=== PATIENT | female | born 1980 | race Caucasian/White ===

== ENCOUNTER 2017-02-18 14:11 | Emergency (ER) | payer OTHER ==
[2017-02-18 14:29] VITALS: BP 144/94
--- NOTE | 2017-02-18 15:23 | UC ---
FLU HPI - HPI Summary HPI Summary: SINCE YESTERDAY, HAS HAD SORE THROAT, BODY ACHES, AND CONGESTION. NO FEVER. NO RASHES. NO NAUSEA, VOMITING, OR DIARRHEA. - History of Current Complaint Chief Complaint: UCRespiratory Stated Complaint: SORE THROAT BODYACHES RUNNY NOSE Time Seen by Provider: 02/18/17 14:27 Hx Obtained From: Patient, Family/Strategic Partner Development Manager Onset/Duration: Gradual Onset, Lasting Days Severity Currently: Mild Severity Initially: Mild Pain Intensity: 0 Pain Scale Used: 0-10 Numeric Associated Signs & Symptoms: Positive: Nasal Congestion - Risk Factors Influenza Risk Factors: Negative - Allergy/Home Medications Allergies/Adverse Reactions: Allergies Allergy/AdvReac Type Severity Reaction Status Date / Time Azithromycin Allergy See Comment Verified 02/18/17 14:20 Latex Allergy Hives Verified 02/18/17 14:20 Naproxen Allergy See Comment Verified 02/18/17 14:20 Home Medications: Home Medications Cetirizine* [ZyrTEC 10 MG TAB*] 1 tab QPM 02/18/17 [History Confirmed 02/18/17] Nabumetone TAB* [Relafen TAB*] 500 mg BID 02/18/17 [History Confirmed 02/18/17] Oxybutynin Chloride [Oxybutynin Chloride ER] 10 mg QAM 02/18/17 [History Confirmed 02/18/17] metFORMIN* [Glucophage 500 MG TAB *] 1,000 mg QPM 02/18/17 [History Confirmed ] PMH/Surg Hx/FS Hx/Imm Hx Previously Healthy: Yes - Surgical History Surgical History: None - Family History Known Family History: Negative: Respiratory Disease - Social History Occupation: Employed Full-time Lives: With Family Alcohol Use: None Substance Use Type: None Smoking Status (MU): Light Every Day Tobacco Smoker Type: Cigarettes Amount Used/How Often: 5 cig/day - Immunization History Most Recent Influenza Vaccination: not yet 2017 Review of Systems Constitutional: Negative Skin: Negative Eyes: Negative ENT: Sore Throat, Sinus Congestion Respiratory: Negative Cardiovascular: Negative Gastrointestinal: Negative Genitourinary: Negative Motor: Negative Neurovascular: Negative Musculoskeletal: Myalgia Neurological: Negative Psychological: Negative Is Patient Immunocompromised?: No All Other Systems Reviewed And Are Negative: Yes Physical Exam Triage Information Reviewed: Yes Appearance: No Pain Distress, Well-Nourished, Ill-Appearing - MILDLY Vital Signs: Initial Vital Signs Temp 97.8 F 02/18/17 14:23 Pulse 91 02/18/17 14:23 Resp 16 02/18/17 14:23 BP 144/94 02/18/17 14:23 Pulse Ox 97 02/18/17 14:23 Vital Signs Reviewed: Yes Eye Exam: Normal ENT: Positive: Normal ENT inspection, Hearing grossly normal, Pharynx normal, TMs normal Dental Exam: Normal Neck exam: Normal Neck: Positive: Supple, Nontender, No Lymphadenopathy Respiratory Exam: Normal Respiratory: Positive: Chest non-tender, Lungs clear, Normal breath sounds, No respiratory distress, No accessory muscle use Cardiovascular Exam: Normal Cardiovascular: Positive: RRR, No Murmur, Pulses Normal, Brisk Capillary Refill Abdominal Exam: Normal Abdomen Description: Positive: Nontender Musculoskeletal Exam: Normal Neurological Exam: Normal Psychological Exam: Normal Skin Exam: Normal Flu Course/Dx - Differential Dx/Diagnosis Differential Diagnosis/HQI/PQRI: Influenza, Other - STREP Provider Diagnoses: PHARYNGITIS; UPPER RESPIRATORY INFECTION Discharge - Discharge Plan Condition: Stable Disposition: HOME Patient Education Materials: Pharyngitis (ED), Upper Respiratory Infection (ED) Referrals: Abdulaziz Moreno PA [Primary Care Provider] -
== END 2017-02-18 15:08 | disposition home or self-care (01) ==
LOC: UCCORT 14:11
DX: J02.9 Acute pharyngitis, unspecified (principal); J06.9 Acute upper respiratory infection, unspecified; Z88.6 Allergy status to analgesic agent; Z88.1 Allergy status to other antibiotic agents; Z91.040 Latex allergy status; F17.210 Nicotine dependence, cigarettes, uncomplicated
CPT/HCPCS: 87502; 87651; 99211; G0463

== ENCOUNTER 2018-10-01 17:07 | Emergency (ER) | payer OTHER ==
[2018-10-01 18:06] VITALS: BP 128/87
--- NOTE | 2018-10-01 18:19 | UC ---
Eye Complaint HPI - HPI Summary HPI Summary: 38-year-old female who had something fly into her eye few days ago today she noted that she had a stye starting on her right lower eyelid. - History of Current Complaint Chief Complaint: UCEye Stated Complaint: RIGHT EYE CONCERN Time Seen by Provider: 10/01/18 17:59 Hx Obtained From: Patient Hx Last Menstrual Period: 10/01/18 ?: No Onset/Duration: Gradual Onset Timing: Constant Severity Initially: Mild Severity Currently: Mild Pain Intensity: 5 Location of Injury: Conjunctiva Aggravating Factor(s): Nothing Alleviating Factor(s): Nothing Associated Signs And Symptoms: Positive: Negative - Allergies/Home Medications Allergies/Adverse Reactions: Allergies Allergy/AdvReac Type Severity Reaction Status Date / Time MS Azithromycin Allergy See Comment Verified 02/18/17 14:20 [Azithromycin] MS Latex [Latex] Allergy Hives Verified 02/18/17 14:20 MS Naproxen [Naproxen] Allergy See Comment Verified 02/18/17 14:20 Home Medications: Home Medications Imipramine (NF) 25 mg PO DAILY 10/01/18 [History Confirmed 10/01/18] PMH/Surg Hx/FS Hx/Imm Hx Previously Healthy: Yes Endocrine History: Diabetes Cardiovascular History: Hypertension Respiratory History: Asthma - Surgical History Surgical History: None - Family History Known Family History: Negative: Respiratory Disease - Social History Alcohol Use: Rare Substance Use Type: None Smoking Status (MU): Light Every Day Tobacco Smoker Type: Cigarettes Amount Used/How Often: 5 cig/day - Immunization History Most Recent Influenza Vaccination: not yet 2017 Review of Systems All Other Systems Reviewed And Are Negative: Yes Eyes: Positive: Other - Patient noted that she had a small possible stye on her right lower eyelid. She does not feel like she has a foreign body in her eye. Is Patient Immunocompromised?: No Physical Exam Triage Information Reviewed: Yes Appearance: Well-Appearing, No Pain Distress, Well-Nourished Vital Signs: Initial Vital Signs Temp 97.8 F 10/01/18 18:00 Pulse 83 10/01/18 18:00 Resp 16 10/01/18 18:00 BP 128/87 10/01/18 18:00 Pulse Ox 97 10/01/18 18:00 Vital Signs Reviewed: Yes Eyes: Positive: Other: - Right conjunctiva has a very small possible stye/ beginning of an ulceration. The eyelids themselves are not swollen presently. Eyes are PERRLA, EOMI. ENT Exam: Normal Neck: Positive: Supple, Nontender, No Lymphadenopathy Skin Exam: Normal Eye Complaint Course/Dx - Course Course Of Treatment: I'm going to treat the patient with tobramycin eyedrops and follow-up with her primary care provider or carroting machine offbearer if no improvement in 3 or 4 days. She is to avoid rubbing her eye. - Differential Dx/Diagnosis Provider Diagnosis: Hordeolum of right lower eyelid Discharge - Sign-Out/Discharge Documenting (check all that apply): Patient Departure All imaging exams completed and their final reports reviewed: No Studies - Discharge Plan Condition: Good Disposition: HOME Prescriptions: Tobramycin 0.3% OPHTH.RAVI* 1 drop RIGHT EYE Q4H 7 Days #1 btl Patient Education Materials: Asif (ED) Referrals: Abdulaziz Moreno PA [Primary Care Provider] - Additional Instructions: Avoid rubbing her eyes. Follow-up with your primary care provider or an carroting machine offbearer in 3 or 4 days if no improvement or if worsening symptoms. - Billing Disposition and Condition Condition: GOOD Disposition: Home
== END 2018-10-01 18:22 | disposition home or self-care (01) ==
LOC: UCCORT 17:07
DX: H00.012 Hordeolum externum right lower eyelid (principal); E11.9 Type 2 diabetes mellitus without complications; I10 Essential (primary) hypertension; F17.210 Nicotine dependence, cigarettes, uncomplicated
CPT/HCPCS: 99212; G0463

== ENCOUNTER 2018-10-10 16:36 | Emergency (ER) | payer OTHER ==
[2018-10-10 17:04] VITALS: BP 139/88
--- NOTE | 2018-10-10 17:22 | UC ---
Eye Complaint HPI - HPI Summary HPI Summary: Pt presents with c/o of right lower lid, "stye" that began just over 7 days ago. Pt was seen here and given tobramycin eye drops and she has completed prescription as prescribed. Pt states symptoms have improved but continues to have "white lump, stye" on inside lower right lid. - History of Current Complaint Chief Complaint: UCEye Stated Complaint: RIGHT EYE ISSUE Time Seen by Provider: 10/10/18 17:17 Hx Obtained From: Family/Quality Associate Hx Last Menstrual Period: 10/01/18 ?: No Onset/Duration: Gradual Onset, Lasting Days, Still Present Timing: Constant Severity Initially: Moderate Severity Currently: Mild Pain Intensity: 0 Location of Injury: Eye Lid (lower) - right Aggravating Factor(s): Nothing Alleviating Factor(s): Eye Drops Associated Signs And Symptoms: Positive: Negative Related History: Meds/Drops Used: - tobramycin - Risk Factors Penetrating Injury Risk Factor: Negative Globe Rupture Risk Factors: Negative Acute Glaucoma Risk Factors: Negative Optic Artery Occlusion Risk Factors: Negative - Allergies/Home Medications Allergies/Adverse Reactions: Allergies Allergy/AdvReac Type Severity Reaction Status Date / Time latex Allergy Intermediate Hives Verified 10/10/18 17:05 azithromycin [From Zithromax] AdvReac nightmares Verified 10/10/18 17:05 naproxen AdvReac talks in Verified 10/10/18 17:05 sleep and says crazy things Home Medications: Home Medications [place]-3 Fatty Acids (Nf) [Fish Oil (NF)] 1 tab BID 10/10/18 [History Confirmed 10/10/18] PMH/Surg Hx/FS Hx/Imm Hx Previously Healthy: Yes - Surgical History Surgical History: None - Family History Known Family History: Negative: Respiratory Disease - Social History Occupation: Employed Full-time Lives: With Family Alcohol Use: Rare Substance Use Type: None Smoking Status (MU): Light Every Day Tobacco Smoker Type: Cigarettes Amount Used/How Often: 5 cig/day Have You Smoked in the Last Year: Yes - Immunization History Most Recent Influenza Vaccination: not yet 2017 Vaccination Up to Date: No Review of Systems All Other Systems Reviewed And Are Negative: Yes Constitutional: Positive: Negative Skin: Positive: Negative Eyes: Positive: Other - "stye" right lower lid ENT: Positive: Negative Respiratory: Positive: Negative Cardiovascular: Positive: Negative Gastrointestinal: Positive: Negative Genitourinary: Positive: Negative Motor: Positive: Negative Neurovascular: Positive: Negative Musculoskeletal: Positive: Negative Neurological: Positive: Negative Psychological: Positive: Negative Is Patient Immunocompromised?: No Physical Exam Triage Information Reviewed: Yes Appearance: Well-Appearing Vital Signs: Initial Vital Signs Temp 98.8 F 10/10/18 17:01 Pulse 101 10/10/18 17:01 Resp 17 10/10/18 17:01 BP 139/88 10/10/18 17:01 Pulse Ox 99 10/10/18 17:01 Vital Signs Reviewed: Yes Eye Exam: Other - right lower lid, small "whitish soft, firm mass" with mild erythema surrounding mass. ENT Exam: Normal Dental Exam: Normal Neck exam: Normal Respiratory Exam: Normal Respiratory: Positive: No respiratory distress Musculoskeletal Exam: Normal Neurological Exam: Normal Psychological Exam: Normal Skin Exam: Normal Eye Complaint Course/Dx - Differential Dx/Diagnosis Differential Diagnosis/HQI/PQRI: Conjunctivitis Provider Diagnosis: Chalazion of right lower eyelid Discharge - Sign-Out/Discharge Documenting (check all that apply): Patient Departure All imaging exams completed and their final reports reviewed: No Studies - Discharge Plan Condition: Stable Disposition: HOME Patient Education Materials: Chalazion (ED), Warm Compress or Soak (ED) Referrals: Abdulaziz Moreno PA [Primary Care Provider] - If Needed Additional Instructions: Please follow up with your eye care provider as soon as possible. - Billing Disposition and Condition Condition: STABLE Disposition: Home
== END 2018-10-10 17:36 | disposition home or self-care (01) ==
LOC: UCCORT 16:36
DX: H00.12 Chalazion right lower eyelid (principal); Z88.6 Allergy status to analgesic agent; Z88.1 Allergy status to other antibiotic agents; Z91.040 Latex allergy status; F17.210 Nicotine dependence, cigarettes, uncomplicated
CPT/HCPCS: 99211; G0463